=== PATIENT | female | born 1995 | race American Indian/Alaskan Native ===

== ENCOUNTER 2017-08-28 17:38 | Outpatient (CLI) | payer MEDICAID ==
[2017-08-28 18:43] VITALS: BP 114/56
[2017-08-28 18:47] LABS: Bilirubin,Urine NEG (Negative); Blood,Urine NEG (Negative); Color,Urine Yellow (Yellow); Mucus,Urine 3+ /HPF; Urobilinogen,Urine < 2.0 mg/dL (<2.0)
[2017-08-28] MEDS ORDERED: NORMOSOL-R PH 7.4 1,000 ML IV ONE (20:04)
[2017-08-29] MEDS ORDERED: NORMOSOL-R PH 7.4 1,000 ML IV ONE (06:35)
== END 2017-08-28 21:39 | disposition home or self-care (01) ==
LOC: TRG 17:38
PROVIDERS: ATTEND Obstetrics & Gynecology
DX: O47.02 False labor before 37 completed weeks of gestation, second trimester (principal); Z3A.21 21 weeks gestation of pregnancy
CPT/HCPCS: 59025; 81001; 96360; 96361